=== PATIENT | female | born 1980 | race Caucasian/White ===

== ENCOUNTER 2018-03-31 10:33 | Outpatient (CLI) | payer MEDICAID ==
[2018-03-31 11:00] VITALS: BP 100/59
--- NOTE | 2018-03-31 11:23 | GI Initial Consult Note ---
History of Present Illness General Date patient seen: Mar 31, 2018 Time patient seen: 11:20 Referring physician: Tg - Dr. Scruggs Reason for Consultation: Persistent Diarrhea Present Illness HPI 37 year old female patient presents today with complaint of persistent diarrhea x 1year. The patient has tried probiotics without any relief. Denies any abdominal pain or N/V. Denies any unintentional weight loss or changes in dietary habits. No signs of abuse or neglect. Patient is not fall risk. No history of endoscopy / colonoscopy. Denies any past medical history. Denies any medication use. Patient History History Provided By: Patient, Medical Record Past Medical History: none Past Surgical History: none Family History Narrative Mothers side, Grandmother had colon CA. Social History: Reports: alcohol use - occasional, other - caffiene; Denies: smoking, drug use Review of Systems All Other Systems: negative except mentioned in HPI Physical Exam T 97.6 BP 100/59 P 62 99 RA Sp02 EP Interpretation: reviewed, normal General Appearance: well appearing, no apparent distress, alert Head: normocephalic EENT: PERRL/EOMI, normal ENT inspection Neck: supple Respiratory: normal breath sounds, no respiratory distress Cardiovascular: normal rate Gastrointestinal: normal inspection, non tender, soft, normal bowel sounds, non -distended Rectal: deferred Genitourinary: no CVA tenderness Musculoskeletal: normal inspection, back normal Neurologic: normal inspection, alert, oriented x3, responsive Psychiatric: normal inspection, judgement/insight normal, memory normal Skin: normal inspection, normal color, no rash, warm/dry, palpation normal, well hydrated Lymphatic: normal inspection, no adenopathy GI: Plan Problems: (1) Diarrhea (2) Celiac disease (3) Lactose intolerance Plan Celiac panel Lactose free diet RTC x [address] Yoder. Thank you for this patient referral. The patient was seen and examined at bedside and all new and available data was reviewed in the patients chart. I agree with the above findings, impression and plan. (Patient seen earlier today. Signature stamp does not reflect patient encounter time.). - MD Verónica Christianson,Anamika-Mohan PEDRO Mar 31, 2018 11:23
[2018-03-31] MEDS ORDERED: no medication (15:32)
== END 2018-03-31 11:03 | disposition home or self-care (01) ==
LOC: PAN 10:33
DX: R19.7 Diarrhea, unspecified (principal); K90.0 Celiac disease; E73.9 Lactose intolerance, unspecified
CPT/HCPCS: 99202